=== PATIENT | female | born 1980 | race Caucasian/White ===

== ENCOUNTER → 2017-07-09 10:21 | Outpatient (CLI) | payer OTHER, SELFPAY ==
[2017-07-09 10:42] LABS: Add Manual Diff / Slide Review NO; Basophils Percent Auto 0.6 % (0-2); Eosinophils Percent Auto 2.6 % (2-4); Hematocrit 38.1 % (36-46); Hemoglobin 13.1 g/dL (12.0-16.0); Lymphocytes Percent Auto 34.3 % (25-40); Mean Corpuscular HGB Conc 34.3 % (30-36); Mean Corpuscular Volume 84.6 fL (80-100); Monocytes Percent Auto 6.1 % (3-14); Neutrophils Absolute Auto 3300 /uL (3000-5900); Neutrophils Percent Auto 56.4 % (50-75); Platelet Count 265 X10^3/uL (150-400); Red Blood Cell Count 4.51 X10^6/uL (4.0-5.2); Red Cell Distribution Width 12.4 % (11.6-14.8); White Blood Cell Count 5.8 X10^3/uL (4.5-11.0)
[2017-07-09 11:10] LABS: Calcium 9.7 mg/dL (8.4-10.2); Estimated Glomerular Filt Rate > 60.0 mL/min (>60); Glucose 92 mg/dL (70-100); HEMOLYSIS < 15 (0-50); Potassium 4.2 mmol/L (3.4-5.1); Sodium 140 mmol/L (137-145)
[2017-07-09 11:25] LABS: Magnesium 1.9 mg/dL (1.6-2.3)
[2017-07-09 11:39] LABS: TSH w/ Reflex to FT4 2.05 uIU/mL (0.47-4.68)
== END ==
PROVIDERS: Family Provider Family Medicine; PCP Family Medicine; Visit Provider Family Medicine
DX: R00.2 Palpitations (principal)
CPT/HCPCS: 36415; 80048; 83735; 84443; 85025

== ENCOUNTER → 2019-09-09 11:25 | Outpatient (CLI) | payer OTHER, SELFPAY ==
[2019-09-09 12:33] LABS: Alanine Aminotransferase 22 IU/L (<35); Albumin 4.7 g/dL (3.5-5.0); Albumin Globulin Ratio 1.9 (1.0-2.8); Alkaline Phosphatase 41 U/L (38-126); Aspartate Aminotransferase 22 IU/L (14-36); BUN Creatinine Ratio 17.7 (6-22); Bilirubin Total 0.7 mg/dL (0.2-1.3); Blood Urea Nitrogen 11 mg/dL (7-17); Calcium 9.9 mg/dL (8.4-10.2); Carbon Dioxide 27 mmol/L (22-32); Chloride 104 mmol/L (98-107); Cholesterol 252 mg/dL (140-199); Estimated Glomerular Filt Rate > 60.0 mL/min (>60); Globulin 2.5 g/dL (1.7-4.1); Glucose 91 mg/dL (70-100); HDL Cholesterol 78 mg/dL (40-60); HEMOLYSIS < 15 (0-50); LDL Cholesterol Calculated 158 mg/dL (<100); Potassium 4.1 mmol/L (3.4-5.1); Sodium 138 mmol/L (137-145); Total Protein 7.2 g/dL (6.3-8.2); Triglycerides 80 mg/dL (35-150)
[2019-09-09 13:04] LABS: TSH w/ Reflex to FT4 1.58 uIU/mL (0.47-4.68)
== END ==
PROVIDERS: Family Provider Family Medicine; PCP Family Medicine; Referring Provider Family Medicine; Visit Provider Family Medicine
DX: Z13.6 Encounter for screening for cardiovascular disorders (principal)
CPT/HCPCS: 36415; 80053; 80061; 84443

== ENCOUNTER → 2019-10-02 17:02 | Outpatient (CLI) | payer OTHER, SELFPAY ==
--- NOTE | 2019-10-02 17:16 | DI.MG.S_ITS ---
BILATERAL DIGITAL SCREENING MAMMOGRAM 3D/2D WITH CAD WITH AUGMENTATION: 10/02/2019 CLINICAL: Patient presents for routine screening. S/P bilateral augmentation. Family history of breast cancer. Baseline exam. No prior exams were available for comparison. The tissue of both breasts is heterogeneously dense. This may lower the sensitivity of mammography. Current study was also evaluated with a Computer Aided Detection (CAD) system. Bilateral breast implants are intact. No significant masses, calcifications, or other findings are seen in either breast. IMPRESSION: NEGATIVE There is no mammographic evidence of malignancy. A 1 year screening mammogram is recommended. This exam was interpreted at Station ID: [id number]. NOTE: For mammograms, a report in lay terms will be sent to the patient. Approximately 15% of breast malignancies will not be visualized mammographically. In the management of a palpable breast mass, a negative mammogram must not discourage biopsy of a clinically suspicious lesion. Electronically Signed By: Randy del toro/musa:10/03/2019 07:53:06 letter sent: Normal Exam ACR BI-RADS Category 1: Negative 3341F
== END ==
PROVIDERS: Family Provider Family Medicine; PCP Family Medicine; Referring Provider Family Medicine; Visit Provider Family Medicine
DX: Z12.31 Encounter for screening mammogram for malignant neoplasm of breast (principal); Z80.3 Family history of malignant neoplasm of breast; Z98.82 Breast implant status
CPT/HCPCS: 77063; 77067

== ENCOUNTER → 2020-01-22 07:53 | Outpatient (CLI) | payer OTHER, SELFPAY ==
[2020-01-22 09:06] LABS: Cholesterol 192 mg/dL (140-199); HDL Cholesterol 75 mg/dL (40-60); LDL Cholesterol Calculated 100 mg/dL (<100); Triglycerides 87 mg/dL (35-150)
[2020-01-22 09:33] LABS: TSH w/ Reflex to FT4 1.55 uIU/mL (0.47-4.68)
== END ==
PROVIDERS: Family Provider Family Medicine; PCP Family Medicine; Referring Provider Family Medicine; Visit Provider Family Medicine
DX: E78.5 Hyperlipidemia, unspecified (principal); R53.83 Other fatigue
CPT/HCPCS: 36415; 80061; 84443

== ENCOUNTER → 2021-01-21 08:58 | Outpatient (CLI) | payer OTHER, SELFPAY ==
[2021-01-21 09:36] LABS: Alanine Aminotransferase 32 IU/L (<35); Albumin 4.4 g/dL (3.5-5.0); Albumin Globulin Ratio 1.5 (1.0-2.8); Alkaline Phosphatase 36 U/L (38-126); Aspartate Aminotransferase 29 IU/L (14-36); BUN Creatinine Ratio 11.9 (6-22); Bilirubin Total 0.6 mg/dL (0.2-1.3); Blood Urea Nitrogen 10 mg/dL (7-17); Calcium 9.8 mg/dL (8.4-10.2); Carbon Dioxide 26 mmol/L (22-32); Chloride 105 mmol/L (98-107); Cholesterol 263 mg/dL (140-199); Estimated Glomerular Filt Rate > 60.0 mL/min (>60); Glucose 99 mg/dL (70-100); HDL Cholesterol 87 mg/dL (40-60); HEMOLYSIS < 15 (0-50); LDL Cholesterol Calculated 136 mg/dL (<100); Potassium 4.2 mmol/L (3.4-5.1); Sodium 138 mmol/L (137-145); Total Protein 7.4 g/dL (6.3-8.2); Triglycerides 201 mg/dL (35-150)
== END ==
PROVIDERS: Family Provider Family Medicine; PCP Family Medicine; Referring Provider Family Medicine; Visit Provider Family Medicine
DX: E78.5 Hyperlipidemia, unspecified (principal)
CPT/HCPCS: 36415; 80053; 80061

== ENCOUNTER → 2021-08-15 15:01 | Outpatient (CLI) | payer OTHER, SELFPAY ==
[2021-08-15 16:08] LABS: COVID19 -Nasal RAPID Negative (Negative)
== END ==
PROVIDERS: Family Provider Family Medicine; PCP Family Medicine; Visit Provider Surgery
DX: Z20.822 Contact with and (suspected) exposure to COVID-19 (principal); Z01.812 Encounter for preprocedural laboratory examination
CPT/HCPCS: 87635; C9803

== ENCOUNTER 2021-08-16 06:45 | Day surgery (SDC) | payer OTHER, SELFPAY ==
[2021-08-16 07:25] VITALS: BP 128/78; PULSE 73; RESP 16; TEMP 37; O2SAT 99; BMI 23.8
[2021-08-16] MEDS: LACTATED RINGERS 1,000 ML 200 ML IV (07:42)
--- NOTE | 2021-08-16 07:48 | PM.HP.1 ---
History of Present Illness History of Present Illness Date Patient Seen: 08/16/21 Time Patient Seen: 07:48 Chief complaint: SDC Narrative: The patient presents for colorectal screening. Two previously normal colonoscopies. Mother had colon cancer. On further history denies any recent gastrointestinal symptoms she previously had IBS symptoms which have resolved.. No nausea, vomiting, abdominal pain, loss of appetite, unexplained weight loss, change in bowel habits, diarrhea, constipation, melena, hematochezia, or bright red blood per rectum. Patient History Medical History Abnormal Pap smear of cervix (09/2011) BRCA negative Cervical intraepithelial neoplasia grade 1 (~06/2017) 3 Hayfever (~2010) Hyperlipidemia (1999) IBS (irritable bowel syndrome) (2004) Iliotibial band syndrome (2007) Presence of intrauterine contraceptive device (06/15/17) Ruptured ovarian cyst Seasonal allergic rhinitis (06/27/13) Stress incontinence in female (~2009) Urinary incontinence (~2009) Surgical History Anesthesia History of breast augmentation (04/2015) History of third molar tooth extraction (1997) Status post colonoscopy (2004) Status post colonoscopy (2005) Status post dilation and curettage (2008) Status post laparoscopy (12/03/15) Family & Social History Family History Father Age: 78 CAD (coronary artery disease) Hyperlipidemia Grandfather Diabetes mellitus Heart disease Mental health problem Grandmother Diabetes mellitus Heart disease Mother Diabetes mellitus Mental health problem Endometrial cancer History of breast cancer in female History of colon cancer Depression Hypertension Grandfather Heart disease Stroke Grandmother Heart disease Hypertension High cholesterol Sister Age: 50 Hyperlipidemia Sister BRCA negative Family/Other Diabetes mellitus Social History: household members spouse,children Tobacco & Substance use: Smoking Status Never smoker alcohol intake current alcohol intake frequency holiday/special occasion Substance Use Type does not use Meds Home Medications and Allergies Home Medications Medication Instructions Recorded Confirmed Type levonorgestrel 20 mcg/24 hours (7 1 device intrauterine ONCE #1 ea 07/14/21 08/16/21 Rx yrs) 52 mg intrauterine device (Mirena) Allergies Allergy/AdvReac Type Severity Reaction Status Date / Time morphine Allergy Mild HIVES Verified 08/16/21 07:23 Exam Vital Signs (past 8 hours): - 08/16/21 07:25 Temperature 98.6 F Pulse Rate 73 Respiratory Rate 16 Blood Pressure 128/78 Pulse Oximetry 99 Oxygen Delivery Method Room Air Oxygen Delivery Method Room Air Narrative Exam Narrative: Gen-Adult woman alert and oriented Abdomen-Soft non tender Ext-WWP Assessment & Plan Assessment & Plan narrative: The patient requires colorectal screening and colonoscopy is recommended. Technical details were discussed. Risks, benefits, alternatives explained. Risks including but not limited to myocardial infarction, aspiration, bleeding, pain, missed lesion, incomplete examination, need for further radiographic studies, colonic perforation, and need for major abdominal surgery were discussed. All questions were answered to their satisfaction, and they are in agreement with this plan. Time Spent With Patient Critical Care time: I spent a total of [] minutes of critical care time on this patient's care today; this time is exclusive of procedural time.
[2021-08-16] MEDS: fentaNYL 250 MCG/5 ML INJ 200 MCG IV (08:09)
[2021-08-16] MEDS: MIDAZOLAM 5 MG/5 ML VIAL 7 MG IV (08:09)
--- NOTE | 2021-08-16 08:18 | PM.OP.COLON ---
Operative Date/Time/Diagnoses Date of procedure: 08/16/21 Time of procedure: 08:18 Pre-op diagnosis: Family history of colon cancer Post-op diagnosis: same Procedure & Clinicians Study performed: Colonoscopy Same procedure as scheduled: Yes Indications: Family history of colon cancer Surgeon: Sherif Berger Procedure Notes Procedure in detail: Medications: Conscious sedation using 7mg IV midazolam and 200mcg IV of fentanyl The history and physical was performed/updated and the patient is ASA class is 1. The procedure was discussed in detail with the patient. Potential risks complications including infection, bleeding, missed diagnosis, perforation, need for surgery, and were explained. Their questions were answered and informed consent was obtained. Patient was brought to the procedure room and placed standard monitoring equipment. The patient's vital signs were monitored continuously throughout the entire procedure. Prior to starting time-out was performed. The patient was placed in the left lateral recumbent position. Procedural sedation was administered. Examination began with a thorough inspection of the perianal area there was no evidence of fissures, fistulae, external hemorrhoids or cutaneous malignancy. The colonoscopy scope was then placed into the anal canal and was advanced to the cecum, which was identified by the ileocecal valve, the appendiceal orifice and the confluence of the taenia. The scope was then slowly withdrawn examining colon thoroughly in all directions, irrigating it of any residual stool. FINDINGS 1. No masses polyps or inflammation 2. Normal healthy colon The patient tolerated the procedure well. They will be discharged once criteria are met. The prep was of good/excellent quality. The withdrawl time was 6 minutes. The sedation time was 18 minutes. Specimen(s): none sent Complications: none Impression: Normal colonoscopy Post-procedure Recommendations: Colonoscopy in 5 years Disposition: same day surgery
[2021-08-16 08:22] VITALS: BP 127/64; PULSE 57; RESP 16; TEMP 36.3; O2SAT 100
[2021-08-16 08:27] VITALS: BP 132/87; PULSE 61; RESP 18; O2SAT 97
[2021-08-16 08:32] VITALS: BP 141/83; PULSE 61; RESP 12; O2SAT 95
[2021-08-16 08:37] VITALS: BP 136/77; PULSE 72; RESP 14; TEMP 36.3; O2SAT 98
[2021-08-16 08:45] VITALS: BP 137/95; PULSE 73; RESP 14; TEMP 36.3; O2SAT 97
--- NOTE | 2021-08-16 08:58 | SUR.PHASEII ---
0855 Pt up in WC, ready for DC. States small flatus in BR. Abd feels, crampy and gassy. States ok for DC. Will take clear liquids until gas subsides and call MD for any changes.
== END 2021-08-16 08:55 | disposition home or self-care (01) ==
PROVIDERS: Family Provider Family Medicine; PCP Family Medicine; Referring Provider Surgery; Visit Provider Surgery
PROC: 0DJD8ZZ Inspection of Lower Intestinal Tract, Via Natural or Artificial Opening Endoscopic (ICD-10-PCS; CPT 45378; principal; 2021-08-16 07:45)
DX: Z12.11 Encounter for screening for malignant neoplasm of colon (principal); Z80.0 Family history of malignant neoplasm of digestive organs
CPT/HCPCS: 45378; 99152; J2250; J3010

== ENCOUNTER → 2022-06-14 09:44 | Outpatient (CLI) | payer OTHER, SELFPAY ==
[2022-06-14 10:41] LABS: Hemoglobin 12.8 g/dL (12.0-16.0); Mean Corpuscular HGB Conc 33.6 % (30-36); Mean Corpuscular Volume 86.3 fL (80-100); Platelet Count 257 X10^3/uL (150-400); Red Cell Distribution Width 12.6 % (11.6-14.8); White Blood Cell Count 10.3 X10^3/uL (4.5-11.0)
[2022-06-14 11:08] LABS: Alanine Aminotransferase 37 IU/L (<35); Albumin 4.3 g/dL (3.5-5.0); Albumin Globulin Ratio 1.5 (1.0-2.8); Alkaline Phosphatase 51 U/L (38-126); Aspartate Aminotransferase 26 IU/L (14-36); BUN Creatinine Ratio 19.4 (6-22); Bilirubin Total 0.7 mg/dL (0.2-1.3); Blood Urea Nitrogen 12 mg/dL (7-17); Calcium 9.1 mg/dL (8.4-10.2); Carbon Dioxide 27 mmol/L (22-32); Chloride 104 mmol/L (98-107); Estimated Glomerular Filt Rate > 60 mL/min (>60); Globulin 2.9 g/dL (1.7-4.1); Glucose 83 mg/dL (70-100); HEMOLYSIS < 15 (0-50); Potassium 3.7 mmol/L (3.4-5.1); Sodium 136 mmol/L (137-145); Total Protein 7.2 g/dL (6.3-8.2)
[2022-06-14 11:22] LABS: Vitamin D 25 Hydroxy (D3) 32.1 ng/mL (30.0-100.0)
[2022-06-14 19:03] LABS: Hepatitis B Surface Antigen NEGATIVE s/c (NEGATIVE)
[2022-06-14 19:20] LABS: HIV 1 & 2 Ab/Ag 4th Gen Combo NEGATIVE (NEGATIVE); Hep C Virus Ab w/Reflex Quant NEGATIVE s/c (NEGATIVE)
[2022-06-16 09:34] LABS: RPR Screen Non Reactive (Non Reactive)
[2022-06-17 13:41] LABS: Glucose-6-Phosphate Dehydrogen 362 (127-427)
[2022-06-17 16:08] LABS: QuantiFERON Mitogen Value >10.00 IU/mL (.); QuantiFERON Nil Value 0.03 IU/mL (.); QuantiFERON TB Gold Plus Negative (Negative); QuantiFERON TB1 Ag Value 0.05 IU/mL (.); QuantiFERON TB2 Ag Value 0.06 IU/mL (.)
== END ==
PROVIDERS: Family Provider Family Medicine; PCP Student in an Organized Health Care Education/Training Program; Referring Provider Student in an Organized Health Care Education/Training Program; Visit Provider Student in an Organized Health Care Education/Training Program
DX: Z02.1 Encounter for pre-employment examination (principal); E78.2 Mixed hyperlipidemia; Z11.59 Encounter for screening for other viral diseases; E55.9 Vitamin D deficiency, unspecified; Z29.8 Encounter for other specified prophylactic measures
CPT/HCPCS: 36415; 80053; 82306; 82955; 85027; 85041; 86480; 86592; 86803; 87340; 87389

== ENCOUNTER → 2022-06-15 15:37 | Outpatient (CLI) | payer OTHER, SELFPAY ==
--- NOTE | 2022-06-15 | DI.MG.S_ITS ---
BILATERAL DIGITAL SCREENING MAMMOGRAM 3D/2D WITH CAD WITH AUGMENTATION: 06/15/2022 CLINICAL: Routine screening. Family history of breast cancer. Comparison is made to exam dated: 10/02/2019 mammogram - [facility]. Both breasts are heterogeneously dense, which may obscure small masses (category c / 51-75% glandular tissue). Current study was also evaluated with a Computer Aided Detection (CAD) system. Bilateral breast implants are stable. No significant masses, calcifications, or other findings are seen in either breast. There has been no significant interval change. IMPRESSION: NEGATIVE There is no mammographic evidence of malignancy. A 1 year screening mammogram is recommended. Based on Tyrer-Cuzick model (a risk assessment model), the patient's lifetime risk is 25.6% and her 10 year risk is 4.7%. If a patient has an elevated risk, a more comprehensive evaluation should be considered and/or a referral to a genetic counselor. The [place] [employer], [place] [employer], and NCCN Guidelines advise the consideration of Breast MRI as an adjunct to screening mammography in patients whose Lifetime risk to develop breast cancer is 20% or higher. This exam was interpreted at Station ID: [id number]. NOTE: For mammograms, a report in lay terms will be sent to the patient. Approximately 15% of breast malignancies will not be visualized mammographically. In the management of a palpable breast mass, a negative mammogram must not discourage biopsy of a clinically suspicious lesion. Electronically Signed By: Ivet enriquez/musa:06/16/2022 12:09:24 letter sent: Normal Exam ACR BI-RADS Category 1: Negative 3341F
== END ==
PROVIDERS: Family Provider Family Medicine; PCP Student in an Organized Health Care Education/Training Program; Referring Provider Student in an Organized Health Care Education/Training Program; Visit Provider Student in an Organized Health Care Education/Training Program
DX: Z12.31 Encounter for screening mammogram for malignant neoplasm of breast (principal); Z80.3 Family history of malignant neoplasm of breast
CPT/HCPCS: 77063; 77067

== ENCOUNTER → 2023-04-29 13:42 | Outpatient (CLI) | payer OTHER, SELFPAY ==
--- NOTE | 2023-04-29 13:44 | DI.RAD.S_ITS ---
PROCEDURE: XR FOOT RT MIN 3V INDICATIONS: Right foot pain TECHNIQUE: 3 views of the foot were acquired. COMPARISON: None. FINDINGS: Bones: No fractures or dislocations. No suspicious bony lesions. Incidental note is made of an accessory ossicle, an os trigonum. Soft tissues: No tibiotalar joint effusion. Achilles tendon appears normal. IMPRESSION: Normal foot plain films. Dictated by: Darell Dorantes M.D. on 04/29/2023 at 13:19 Approved by: Darell Dorantes M.D. on 04/29/2023 at 13:19
== END ==
LOC: RAD 13:43
PROVIDERS: Family Provider Family Medicine; PCP Student in an Organized Health Care Education/Training Program; Referring Provider Physician Assistant Medical; Visit Provider Physician Assistant Medical
DX: M79.671 Pain in right foot (principal)
CPT/HCPCS: 73630

== ENCOUNTER → 2023-05-22 08:08 | Outpatient (CLI) | payer OTHER, SELFPAY ==
[2023-05-22 09:16] LABS: Cholesterol 238 mg/dL (140-199); HDL Cholesterol 84 mg/dL (40-60); LDL Cholesterol Calculated 138 mg/dL (<100); Magnesium 2.1 mg/dL (1.6-2.3); Triglycerides 78 mg/dL (35-150)
[2023-05-22 09:32] LABS: Vitamin D 25 Hydroxy (D3) 44.1 ng/mL (30.0-100.0)
== END ==
PROVIDERS: Family Provider Family Medicine; PCP Family Medicine; Referring Provider Family Medicine; Visit Provider Family Medicine
DX: E78.2 Mixed hyperlipidemia (principal); Z13.21 Encounter for screening for nutritional disorder
CPT/HCPCS: 36415; 80061; 82306; 83735

== ENCOUNTER → 2023-07-05 16:51 | Outpatient (CLI) | payer OTHER, SELFPAY ==
--- NOTE | 2023-07-05 | DI.MG.S_ITS ---
BILATERAL DIGITAL SCREENING MAMMOGRAM 3D/2D WITH CAD WITH AUGMENTATION: 07/05/2023 CLINICAL: Routine screening. Family history of breast cancer. Comparison is made to exams dated: 06/15/2022 mammogram and 10/02/2019 mammogram - [facility]. Both breasts are heterogeneously dense, which may obscure small masses (category c / 51-75% glandular tissue). Current study was also evaluated with a Computer Aided Detection (CAD) system. Bilateral breast implants are present. No significant masses, calcifications, or other findings are seen in either breast. There has been no significant interval change. IMPRESSION: NEGATIVE There is no mammographic evidence of malignancy. A 1 year screening mammogram is recommended. Based on Tyrer-Cuzick model (a risk assessment model), the patient's lifetime risk is 25.5% and her 10 year risk is 4.9%. If a patient has an elevated risk, a more comprehensive evaluation should be considered and/or a referral to a genetic counselor. The [place] [employer], [employer] [employer], and NCCN Guidelines advise the consideration of Breast MRI as an adjunct to screening mammography in patients whose Lifetime risk to develop breast cancer is 20% or higher. This exam was interpreted at Station ID: [id number]. NOTE: For mammograms, a report in lay terms will be sent to the patient. Approximately 15% of breast malignancies will not be visualized mammographically. In the management of a palpable breast mass, a negative mammogram must not discourage biopsy of a clinically suspicious lesion. Electronically Signed By: [place] cao/musa:07/06/2023 08:52:01 letter sent: Normal Exam ACR BI-RADS Category 1: Negative 3341F
== END ==
PROVIDERS: Family Provider Family Medicine; PCP Family Medicine; Referring Provider Family Medicine; Visit Provider Family Medicine
DX: Z12.31 Encounter for screening mammogram for malignant neoplasm of breast (principal); Z80.3 Family history of malignant neoplasm of breast; R92.333 Mammographic heterogeneous density, bilateral breasts
CPT/HCPCS: 77063; 77067